=== PATIENT | female | born 1970 | race African-American/Black ===

== ENCOUNTER → 2019-05-13 | Outpatient (CLI) | payer OTHER ==
[2014-07-21 15:35] VITALS: BP 124/72
[~2019-05-13] MED LIST: ATEN25TA PO; HYDR-3164 PO
--- NOTE | 2019-05-13 17:00 | RAD ---
INDICATION: 49 year-old female presents for palpable abnormality of the right breast TECHNIQUE: Targeted high resolution sonography of the region of clinical concern was performed. COMPARISON: None FINDINGS: Sonographic evaluation of the region of concern at approximately the 9-10:00 position demonstrate a heterogeneously hypoechoic 3.7 x 1.7 x 1.6 cm structure. In addition several associated prominent ducts are seen. IMPRESSION: 3.7 cm heterogeneously hypoechoic lesion is incompletely assessed by ultrasound. RECOMMENDATION: Additional imaging to include diagnostic mammography of the right breast is recommended. BI-RADS 0: Incomplete - Need Additional Imaging Evaluation and/or Prior Mammograms For Comparison Electronically signed by: Armani Meraz MD (05/13/2019 4:57 PM) [facility]
== END | disposition home or self-care (01) ==
LOC: US 13:45
PROVIDERS: ATTEND Nurse Practitioner Gerontology
DX: N64.89 Other specified disorders of breast (principal)
CPT/HCPCS: 76641

== ENCOUNTER → 2019-05-24 | Outpatient (CLI) | payer OTHER ==
[2014-07-21 15:35] VITALS: BP 124/72
--- NOTE | 2019-05-26 13:28 | RAD ---
DATE: 05/24/2019 1:51 PM EXAM: MAMMO [facility] DIAG BILAT HISTORY: imaging evaluation of a palpable area of concern within the right lateral breast COMPARISON: Mammogram 12/06/2015, ultrasound 05/13/2019 Bilateral CC and MLO views of the breasts were performed. Bilateral breast tomosynthesis was performed in CC and MLO projections. This study was interpreted with the benefit of Computerized Aided Detection (CAD). FINDINGS: Breast Density: SCATTERED The breast parenchyma shows scattered fibroglandular densities. Breast parenchyma level B Benign calcifications are present. The parenchymal pattern appears stable. No suspicious masses, microcalcifications or architectural distortion is present to suggest malignancy in either breast. The visualized axillae are unremarkable. IMPRESSION: No mammographic evidence of malignancy. BI-RADS CATEGORY: 3 PROBABLY BENIGN FINDING(S)-SHORT INTERVAL FOLLOW-UP SUGGESTED RECOMMENDED FOLLOW-UP: 6M 6 MONTH FOLLOW-UP follow-up mammogram and ultrasound 6 months is recommended following clinical management of the patient's breast pain and erythema. PQRS compliance statement: Patient information was entered into a reminder system with a target due date for the next mammogram. Mammography is a sensitive method for finding small breast cancers, but it does not detect them all and is not a substitute for careful clinical examination. A negative mammogram does not negate a clinically suspicious finding and should not result in delay in biopsying a clinically suspicious abnormality. "Our facility is accredited by the [employer] Mammography [employer]."
== END | disposition home or self-care (01) ==
LOC: MAMMO 13:26
PROVIDERS: ATTEND Nurse Practitioner Gerontology
DX: R92.1 Mammographic calcification found on diagnostic imaging of breast (principal); N64.4 Mastodynia
CPT/HCPCS: 77066; G0279; 77062

== ENCOUNTER → 2019-11-10 | Outpatient (CLI) | payer OTHER ==
[2014-07-21 15:35] VITALS: BP 124/72
--- NOTE | 2019-11-10 11:37 | RAD ---
Examination: Right diagnostic mammogram. INDICATION: 49-year-old woman recommended for short-term follow-up probably benign calcifications right breast following initial presentation for palpable lump in the right breast. COMPARISON: Mammograms of 08/01/2014, 12/06/2015, 05/24/2019, and right breast ultrasound of 05/13/2019. TECHNIQUE: CC, MLO and ML views of the right breast were obtained with 2-D and 3-D technique and reviewed with computer-aided detection. FINDINGS: Heterogeneously dense breast parenchyma. Multiple oil cysts are present throughout the right breast, indicative of previous trauma or inflammation. However, in the lower-outer quadrant anterior third right breast a spiculated 1.5 cm mass is identified at the approximate 7:00 position 5 cm from the nipple best seen on tomographic image 17 of 77 on the CC series. Although potentially reflecting scarring from previous inflammation or other benign etiology such as a radial sclerosing lesion, this needs additional imaging evaluation with ultrasound and potential biopsy to confirm a benign etiology. Patient's previous breast ultrasound also showed an oval circumscribed hypoechoic 1.3 cm superficial mass of the right 10:00 position 5 cm from the nipple that requires additional follow-up. This could also represent an oil cyst or other benign etiology but needs additional imaging evaluation as well. IMPRESSION: Incomplete. Right breast needs additional imaging evaluation. Recommend right breast ultrasound targeted to the anterior third lower-outer quadrant. This will be performed and reported separately the same day. Discussed with patient. BI-RADS Category 0 Incomplete. Needs additional imaging evaluation BI-RADS 0 -- incomplete assessment
--- NOTE | 2019-11-10 13:28 | RAD ---
Examination: Limited right breast ultrasound. INDICATION: Architectural distortion in the lower-outer right breast recommended for additional imaging by targeted right breast ultrasound. Patient is also here for short-term follow-up for probably benign findings in the right breast seen on prior mammogram and ultrasound. COMPARISON: Earlier same day right diagnostic mammogram. In addition, right breast ultrasound of 05/13/2019 and right diagnostic mammogram of 05/24/2019 as well as mammograms of 12/06/2015 and 08/01/2014 were reviewed. FINDINGS: Targeted ultrasound of the lateral right breast in the upper outer and lower outer quadrants was performed in follow-up to sonographic findings seen on prior breast ultrasound, notably at the 9:00 and 10:00 positions between 4 and 5 cm from the nipple. The oval 1.2 cm mass at the right 10:00 position 5 cm from the nipple and prominent on the previous ultrasound exam has decreased slightly in size and is considered benign with no requirement for additional follow-up. The 3.7 cm hypoechoic lesion seen on previous ultrasound is not as conspicuous on this examination. However at the 9:00 position 4 cm from the nipple ( image 6 through 9 on series 1 this exam), a 1 cm hypoechoic mass with slightly irregular margins is identified that with the use of a BB marker on the sonographic finding, appears to correlate in reasonable concordance with the architectural distortion seen on earlier same day mammogram. This is suspicious with a low index of suspicion for malignancy. Biopsy is recommended, ideally performed with stereotactic imaging guidance since this is the modality which the abnormality is best visualized. Ultrasound this visit reveals no right axillary adenopathy. IMPRESSION: Suspicious distortion in the lower-outer right breast, possibly reflecting postinfectious/postinflammatory fibrosis and scarring. Stereotactic right breast biopsy is recommended. Discussed with patient. Also discussed with patient's referring provider Paula Madison NP by telephone at 1:20 pm on 11/10/2019 BI-RADS Category 4: Suspicious. BI-RADS 4 -- suspicious abnormality, biopsy recommended
== END ==
LOC: MAMMO 10:05
PROVIDERS: ATTEND Nurse Practitioner Gerontology
DX: N63.13 Unspecified lump in the right breast, lower outer quadrant (principal)
CPT/HCPCS: 76641; 77065; G0279; 77061

== ENCOUNTER → 2020-01-21 | Outpatient (CLI) | payer OTHER ==
[2014-07-21 15:35] VITALS: BP 124/72
[~2020-01-21] MED LIST changes: +LIDOCAINE 2%/EPI 1:100,000 20 ML VIAL. IJ ONE
--- NOTE | 2020-01-21 15:54 | RAD ---
Examination: 1. Stereotactic right breast biopsy. 2. Right digital diagnostic post procedure mammogram. INDICATION: Architectural distortion in the lower-outer right breast recommended for biopsy. COMPARISON: Right breast ultrasound and diagnostic mammogram of 11/10/2019, right mammogram of 12/06/2015 and 11/10/2019. TECHNIQUE: Informed consent was obtained and an appropriate procedural pause observed. Using standard sterile technique, standard technical mammographic imaging guidance and local anesthesia with lidocaine 2%, multiple vacuum-assisted 9 gauge biopsy samples were obtained. A michelle shaped biopsy marker was subsequently placed at the biopsy site and hemostasis assured with direct breast compression for 10 minutes. Digital right postprocedure mammogram was obtained. Thereafter, patient was discharged in stable condition to follow-up with her referring physician. FINDINGS: Architectural distortion is best identified on 3-D mammography in the patient's right breast, which is heterogeneously dense. The area of distortion was identified on 2-D imaging, and multiple vacuum-assisted samples were obtained. Upon deployment of the biopsy marker, withdrawal the needle from a lateral medial approach, and breast compression for hemostasis, it became apparent on the post biopsy mammogram that the biopsy marker had migrated medial to the area of architectural distortion, best appreciated on the craniocaudal view. The biopsy marker is approximately 5 cm medial to the center of the area of architectural distortion on the CC view. No postbiopsy hematoma. IMPRESSION: Right breast stereotactic biopsy as described with potential medial migration of the biopsy marker. Discussed with patient. Pathology results are pending. An addendum will be issued once pathology results become available.
--- NOTE | 2020-01-24 16:06 | PATHOLOGY ---
[facility] Accession Number: [id number] . 01 Material submitted: . breast - RIGHT BREAST SPECIMEN. Modifiers: right . 01 Clinical history: . Right breast tissue/mass . 02 Diagnosis: Breast tissue, right breast tissue/mass stereotactic needle biopsies: - Predominantly fatty breast tissue showing focal mild duct ectasia and periductal chronic inflammation. (JPM:franco; 01/24/2020) S 01/24/2020 0947 Local . 02 Comment: There is no atypia or evidence of malignancy. (JPM:franco; 01/24/2020) . 02 Electronically signed: . Asael Woodard MD, Pathologist NPI- [id number] . 01 Gross description: . The specimen is received in formalin, labeled "Kinjal Leija, right breast". Received are multiple needle cores of fibrofatty tissue measuring 5.4 x 4.3 x 0.5 cm in aggregate dimensions. The specimen is submitted entirely in cassettes A1 through A6. The cold ischemic time is 5 minutes. The total formalin fixation time is 8 hours and 20 minutes. ([facility]; 01/21/2020) QAC/QAC 01/21/2020 1651 Local . 02 Pathologist provided ICD-10: N60.41, N61.0 . 02 CPT . 249253 Specimen Comment: A courtesy copy of this report has been sent to [phone] Specimen Comment: [id number], Specimen Comment: Report sent to ,DR MASCORRO / DR CHAIREZ Performed at: [address], [place], [place] [id number] MD Dominick Pradhan MD Phone: [phone] Performed at: 02 [facility] [address] [place], [place] [id number] MD Asael Woodard MD Phone: [phone]
== END ==
LOC: MAMMO 11:56
PROVIDERS: ATTEND Surgery
DX: N63.13 Unspecified lump in the right breast, lower outer quadrant (principal); N61.0 Mastitis without abscess; N60.42 Mammary duct ectasia of left breast
CPT/HCPCS: 19081; 77065; C1713; J3490; 19085; 77022